=== PATIENT | female | born 1990 | race Caucasian/White ===

== ENCOUNTER → 2016-09-28 | Outpatient (CLI) | payer BC ==
--- NOTE | 2016-09-28 13:30 | REP ---
Clinical: Anatomical evaluation. Comparison: 07/13/2016 . Findings: Examination demonstrates a single live intrauterine in breech presentation. motion is identified by technologist. Placenta is noted anteriorly and grade zero without evidence for placenta previa or abruption. Amniotic fluid volume is normal. Cervix measures 3.1 cm in length and appears closed. No evidence for nuchal cord. Gestational age by LMP 20 weeks 3 days with NURY 02/12/2017 . Gestational age by current measurements 19 weeks 1 day with NURY 02/21/2017 . FHR equals 150 beats per minute. BPD 4.3 cm 19 weeks 0 days HC 16.6 cm 19 weeks 2 days AC 13.5 cm 19 weeks 0 days FL 3.0 cm 19 weeks 2 days HL 2.9 cm 90 weeks 3 days HC/AC ratio 1.22 Estimated weight 277 grams ( 7th percentile). Anatomical assessment demonstrates normal structures including cranium, choroid plexus, cavum, cerebellum/posterior fossa, facial features, lungs, diaphragm, stomach, cord insertion/three-vessel cord, kidneys/bladder, and extremities. Limited evaluation of the heart/ventricular outflow tracts and spine noted. Impression: 1. Single live intrauterine in cephalic presentation. 2. Estimated weight is lower limits of normal. 3. Anatomical limitations as described above may warrant reevaluation and follow-up. Signed by Kamaljit Sargent MD 09/28/2016 01:21 P
== END ==
LOC: M RAD 11:56
PROVIDERS: ATTEND Nurse Practitioner Women's Health
DX: Z36 Encounter for antenatal screening of mother (principal); Z3A.19 19 weeks gestation of pregnancy

== ENCOUNTER → 2016-10-16 | Outpatient (CLI) | payer BC ==
--- NOTE | 2016-10-17 03:47 | REP ---
Clinical: Anatomical evaluation. Comparison: 09/28/2016 . Findings: Examination demonstrates a single live intrauterine in cephalic presentation. motion is identified by technologist. Placenta is noted anterofundally and grade zero with evidence for a posterior succenturiate lobe. No placenta previa or abruption noted. Amniotic fluid volume is normal. Cervix measures 3.1 cm in length and appears closed. Evidence for nuchal cord noted. Gestational age by LMP 21 weeks 4 days with NURY 02/22/2017 . Gestational age by current measurements 21 weeks 3 days with NURY 02/23/2017 . FHR equals 150 beats per minute. Estimated weight 433 grams ( 44th percentile). Anatomical assessment demonstrates normal structures including cranium, choroid plexus, cavum, cerebellum/posterior fossa, facial features, lungs, four-chamber heart/ventricular outflow tracts, diaphragm, stomach, cord insertion/three-vessel cord, kidneys/bladder, spine, and extremities. Impression: 1. Placenta is noted anterofundally and grade zero with evidence for a posterior succenturiate lobe. 2. Nuchal cord. 3. Anatomical assessment is complete and normal. 4. Estimated weight by current biometrical measurements normal. Signed by Kamaljit Sargent MD 10/17/2016 03:38 A
== END ==
LOC: M RAD 14:12
PROVIDERS: ATTEND Nurse Practitioner Women's Health
DX: O43.892 Other placental disorders, second trimester (principal); Z3A.21 21 weeks gestation of pregnancy

== ENCOUNTER 2017-01-18 20:04 | Emergency (ER) | payer BC ==
[~2017-01-18] VITALS: Ht 162.6 cm; Wt 80.0 kg
[2017-01-18 20:04] VITALS: BP 131/73
== END 2017-01-18 21:38 | disposition left against medical advice (07) ==
LOC: M ED 20:04
DX: M79.606 Pain in leg, unspecified (principal); Z53.21 Procedure and treatment not carried out due to patient leaving prior to being seen by health care provider

== ENCOUNTER 2017-01-20 19:16 | Outpatient (CLI) | payer BC ==
[~2017-01-20] VITALS: Ht 162.6 cm; Wt 74.0 kg
[2017-01-20 19:24] VITALS: BP 124/70
[2017-01-20 19:31] VITALS: BP 124/70
== END 2017-01-20 22:39 | disposition home or self-care (01) ==
LOC: M LDO 19:16
PROVIDERS: ATTEND Specialist
DX: O26.893 Other specified pregnancy related conditions, third trimester (principal); Z3A.35 35 weeks gestation of pregnancy; R10.84 Generalized abdominal pain; Z88.8 Allergy status to other drugs, medicaments and biological substances

== ENCOUNTER → 2019-08-22 | Outpatient (CLI) | payer BC ==
[2019-08-22 16:23] LABS: BASO # 0.1 10^3/uL (0.0-0.2); BASO % 0.6 % (0.0-1.0); EOS # 0.3 10^3/uL (0.0-0.5); EOS % 3.3 % (0.0-3.0); HEMATOCRIT 39.1 % (36.0-47.0); HEMOGLOBIN 13.5 g/dl (12.0-15.5); LYMPH % 18.8 % (24.0-44.0); MEAN CORPUSCULAR HEMOGLOBIN 29.3 pg (27.0-33.0); MEAN CORPUSCULAR HGB CONC 34.5 g/dl (32.0-36.5); MONO # 0.8 10^3/uL (0.0-0.8); MONO % 7.3 % (0.0-5.0); NEUTROPHILS # 7.3 10^3/uL (1.5-8.5); NEUTROPHILS % 69.6 % (36.0-66.0); PLATELET COUNT, AUTOMATED 223 10^3/uL (150-450); WHITE BLOOD COUNT 10.5 10^3/uL (4.0-10.0)
[2019-08-22 16:48] LABS: ALBUMIN 4.5 GM/DL (3.2-5.2); ALT/SGPT 47 U/L (12-78); BILIRUBIN,TOTAL 0.8 MG/DL (0.2-1.0); BLOOD UREA NITROGEN 12 MG/DL (7-18); CALCIUM LEVEL 9.4 MG/DL (8.5-10.1); CARBON DIOXIDE LEVEL 28 MEQ/L (21-32); CHLORIDE LEVEL 107 MEQ/L (98-107); CREATININE FOR GFR 0.62 MG/DL (0.55-1.30); GLOMERULAR FILTRATION RATE > 60.0 (>60); GLUCOSE, FASTING 85 MG/DL (70-100); POTASSIUM SERUM 4.2 MEQ/L (3.5-5.1); SODIUM LEVEL 138 MEQ/L (136-145); TOTAL 25(OH) VITAMIN D 18.3 NG/ML (30.0-100.0); TOTAL PROTEIN 7.8 GM/DL (6.4-8.2)
== END ==
LOC: M WUC 12:33
PROVIDERS: ATTEND Physician Assistant
DX: R53.83 Other fatigue (principal); E55.9 Vitamin D deficiency, unspecified; R63.5 Abnormal weight gain

== ENCOUNTER → 2019-12-25 | Outpatient (REF) | payer BC ==
[2019-12-25 17:58] LABS: HEMATOCRIT 36.2 % (36.0-47.0); HEMOGLOBIN 12.6 g/dl (12.0-15.5); MEAN CORPUSCULAR HEMOGLOBIN 29.9 pg (27.0-33.0); MEAN CORPUSCULAR HGB CONC 34.8 g/dl (32.0-36.5); PLATELET COUNT, AUTOMATED 233 10^3/uL (150-450); RED BLOOD COUNT 4.21 10^6/uL (4.00-5.40); WHITE BLOOD COUNT 8.3 10^3/uL (4.0-10.0)
[2019-12-25 19:37] LABS: FREE T3 2.6 PG/ML (2.2-4.0); FREE T4 1.03 NG/DL (0.76-1.46); HCG, SERUM QUANTITATIVE 151831 MIU/ML
[2019-12-26 09:48] LABS: HEPATITIS B SURFACE ANTIGEN NEGATIVE (NEGATIVE)
[2019-12-26 10:16] LABS: HEPATITIS C VIRUS ABY INDEX 0.3 INDEX (<0.8); HIV 1&2 SCREEN CENTAUR NEGATIVE (NEGATIVE)
== END ==
LOC: M LAB REF 16:14
PROVIDERS: ATTEND Obstetrics & Gynecology
DX: Z32.01 Encounter for pregnancy test, result positive (principal)

== ENCOUNTER → 2020-04-06 | Outpatient (CLI) | payer BC ==
--- NOTE | 2020-04-13 09:14 | REP ---
OBSTETRIC SONOGRAPHY HISTORY: Follow-up anatomy, facial profile. FINDINGS: Scanning through the gravid uterus demonstrates a viable single intrauterine gestation in a breech lie. Placenta is anterior grade 1 without evidence of previa. Amniotic fluid is subjectively normal. heart rate is recorded at 138 beats per minute. No definite anomaly is seen. There is some asymmetry in the size of the lateral ventricles, left 8 mm and right 6 mm; most consistent with normal variation. The following anatomic structures are identified and felt to be unremarkable: cranium and other intracranial anatomy, face and profile, nose and lips, four chamber heart with left and right ventricular outflow tract views, diaphragm, left-sided stomach, abdominal wall cord insertion, kidneys and bladder, spine, upper and lower extremities. Three- vessel cord is seen. BIOMETRY CHART: BPD 5.4 cm 22 weeks 4 days Head circumference 21.3 cm 23 weeks 2 days Abdominal circumference 19.5 cm 24 weeks 2 days Femur length 4.2 cm 23 weeks 5 days Humeral length 4.3 cm 25 weeks 4 days AC/HC ratio 1.09 Normal Cephalic index 0.69 (0.70 0.86) Estimated weight 641 grams, 1 pound 6 ounces, 51st percentile for 23 weeks 6 days. IMPRESSION: Single intrauterine gestation in breech lie. 23 weeks 6 days by todays composite sonographic criteria. Estimated date of delivery (NURY) by todays sonography 07/28/2020. In conjunction with prior study, anatomic survey is felt to be complete. MTDD
== END ==
LOC: M WHC 10:38
PROVIDERS: ATTEND Advanced Practice Midwife
DX: Z34.82 Encounter for supervision of other normal pregnancy, second trimester (principal); Z3A.23 23 weeks gestation of pregnancy

== ENCOUNTER → 2020-05-13 | Outpatient (CLI) | payer BC ==
[2020-05-13 18:13] LABS: HEMATOCRIT 27.9 % (36.0-47.0); HEMOGLOBIN 9.1 g/dl (12.0-15.5); MEAN CORPUSCULAR HEMOGLOBIN 27.7 pg (27.0-33.0); MEAN CORPUSCULAR HGB CONC 32.6 g/dl (32.0-36.5); MEAN CORPUSCULAR VOLUME 85.1 fl (80.0-96.0); PLATELET COUNT, AUTOMATED 132 10^3/uL (150-450); RED BLOOD COUNT 3.28 10^6/uL (4.00-5.40); WHITE BLOOD COUNT 9.9 10^3/uL (4.0-10.0)
== END ==
LOC: M WUC 14:55
PROVIDERS: ATTEND Advanced Practice Midwife
DX: Z34.82 Encounter for supervision of other normal pregnancy, second trimester (principal); Z3A.00 Weeks of gestation of pregnancy not specified

== ENCOUNTER → 2020-06-29 | Outpatient (REF) | payer BC | LOC: M LAB REF 16:27 | PROVIDERS: ATTEND Obstetrics & Gynecology | DX: Z34.83 Encounter for supervision of other normal pregnancy, third trimester (principal); Z3A.00 Weeks of gestation of pregnancy not specified ==

== ENCOUNTER → 2020-07-07 | Outpatient (CLI) | payer BC, MEDICAID ==
--- NOTE | 2020-07-07 14:09 | REP ---
INDICATION: CK PRESENTATION/KATEY/EFW COMPARISON: None. TECHNIQUE: Transabdominal obstetrical ultrasound with color Doppler evaluation. FINDINGS: Examination demonstrates a single live intrauterine in cephalic presentation. motion is identified by technologist. Placenta is noted anterior and grade 2 without evidence for placenta previa or abruption. Amniotic fluid volume is normal. Cervix appears closed. Gestational age by 1st U/S 37 weeks 0 days with NURY 07/28/2020. Gestational age by current measurements 38 weeks 0 days with NURY 07/21/2020. FHR equals 150 beats per minute. KATEY: 13.5 cm (7.5-24.4) Estimated weight by current measurements 3805 grams (> 97% based on age by 1st ultrasound). IMPRESSION: Single live advanced gestation in cephalic presentation. KATEY normal. Estimated weight as noted above. <Electronically signed by Kamaljit Sargent > 07/07/20 [id number]
== END ==
LOC: M WHC 13:09
PROVIDERS: ATTEND Obstetrics & Gynecology
DX: O32.8XX0 Maternal care for other malpresentation of fetus, not applicable or unspecified (principal); Z3A.37 37 weeks gestation of pregnancy

== ENCOUNTER → 2023-03-22 | Outpatient (CLI) | payer OTHER ==
[2023-03-22 18:55] LABS: CORTISOL AM 6.9 UG/DL (4.3-22.4)
[2023-03-22 18:59] LABS: PROLACTIN 6.9 NG/ML
[2023-03-22 19:01] LABS: FOLLICLE STIMULATING HORMONE 4.3 mIU/ML; THYROID STIMULATING HORMONE 5.048 uIU/ML (0.55-4.78)
== END ==
LOC: M WUC 10:55
PROVIDERS: ATTEND Family Medicine
DX: E66.3 Overweight (principal); E03.9 Hypothyroidism, unspecified

== ENCOUNTER → 2024-03-18 | Outpatient (REF) | payer OTHER | LOC: M SFHCLERA 14:46 | PROVIDERS: ATTEND Family Medicine | DX: E03.9 Hypothyroidism, unspecified (principal) ==

== ENCOUNTER → 2024-03-25 | Outpatient (CLI) | payer OTHER | LOC: M WUC 14:31 | PROVIDERS: ATTEND Family Medicine | DX: E03.9 Hypothyroidism, unspecified (principal) ==

== ENCOUNTER → 2024-04-17 | Outpatient (CLI) | payer OTHER | LOC: M WHC 13:55 | PROVIDERS: ATTEND Family Medicine | DX: L98.7 Excessive and redundant skin and subcutaneous tissue (principal) ==

== ENCOUNTER → 2025-05-14 | Outpatient (REF) | payer OTHER | LOC: M LAB REF 11:51 | PROVIDERS: ATTEND Physician Assistant | DX: B34.9 Viral infection, unspecified (principal); J02.9 Acute pharyngitis, unspecified ==